=== PATIENT | male | born 1945 | race Caucasian/White ===

== ENCOUNTER 2020-08-26 13:42 | Inpatient (IN) ==
[2020-08-26 14:17] LABS: Basophils # 0.1 K/mcL (0.0-0.2); Eosinophils # 0.1 K/mcL (0.0-0.6); Hematocrit 50.2 % (37.5-50.1); Hemoglobin 16.8 g/dL (12.9-16.9); Mean Corpuscular HGB Conc 33.5 g/dL (31.6-35.5); Mean Corpuscular Volume 89.6 fL (83.0-100.0); Mean Platelet Volume 9.9 fL (9.4-12.4); Monocytes # 1.2 K/mcL (0.0-1.3); Platelet Count 273 K/mcL (140-400); Red Cell Distribution Width 12.9 % (11.5-14.5); White Blood Count 6.3 K/mcL (4.3-11.1)
[2020-08-26 14:37] LABS: INR 1.1; Prothrombin Time 12.2 Seconds (9.4-12.1)
[2020-08-26 14:45] LABS: Lymphocytes # 2.6 K/mcL (0.6-4.6); Neutrophils # 2.4 K/mcL (1.6-8.9)
[2020-08-26 14:46] LABS: Platelet Estimate Normal (Normal); Reactive Lymphocytes Present (Not Present)
[2020-08-26 15:06] LABS: BUN/Creatinine Ratio 13 (6-26); Blood Urea Nitrogen 13 mg/dL (8-23); Calcium 9.8 mg/dL (8.6-10.3); Carbon Dioxide 28 mEq/L (23-29); Chloride 97 mEq/L (98-107); Glucose 119 mg/dL (70-105); Osmolality,Calculated 283 (280-300); Potassium 3.6 mEq/L (3.5-5.1); Sodium 136 mEq/L (136-145); Troponin I < 0.03 ng/mL (< 0.04); eGFR For African Americans > 60 (> 60); eGFR For Non-African Americans > 60 (> 60)
[2020-08-26] MEDS ORDERED: Naloxone 0.4 MG/ML INJ IVP PRN (17:42)
[2020-08-26] MEDS ORDERED: Ondansetron 4 MG/2 ML VIAL IVP PRN (17:42)
[2020-08-26] MEDS ORDERED: Dextrose Gel 15 GM/37.5 ML TUBE PO PRN ×2 (17:52)
[2020-08-26] MEDS ORDERED: D5% in Water 1,000 ML IVC PRN (17:52)
[2020-08-26] MEDS ORDERED: *HR* Dextrose 50 % in Water (Vial) 50 ML VIAL IVP PRN (17:52)
[2020-08-26] MEDS: Dexamethasone 4 MG/ML VIAL IVP SCH (19:53)
[2020-08-26] MEDS: traZODone 50 MG TABLET PO SCH (19:55)
[2020-08-26] MEDS: Mirtazapine 15 MG TABLET PO SCH (19:55)
[2020-08-26] MEDS: *HR* Heparin 5,000 UNIT/ML VIAL SQ SCH (19:55)
[2020-08-26] MEDS: Insulin LISPRO 300 UNITS/3 ML VIAL SQ SCH (22:00)
[2020-08-27] MEDS: *HR* Heparin 5,000 UNIT/ML VIAL SQ SCH ×2 (05:36→19:15)
[2020-08-27 06:41] LABS: Basophils % 0.4 %; Hematocrit 49.3 % (37.5-50.1); Hemoglobin 16.4 g/dL (12.9-16.9); Immature Granulocytes % 0.2 % (0-4); Lymphocytes # 2.8 K/mcL (0.6-4.6); Lymphocytes % 56.8 %; Mean Corpuscular HGB Conc 33.3 g/dL (31.6-35.5); Mean Corpuscular Hemoglobin 29.9 pg (28.0-33.3); Mean Corpuscular Volume 89.8 fL (83.0-100.0); Mean Platelet Volume 9.9 fL (9.4-12.4); Monocytes # 0.3 K/mcL (0.0-1.3); Monocytes % 6.9 %; Neutrophils # 1.8 K/mcL (1.6-8.9); Platelet Count 272 K/mcL (140-400); Red Blood Count 5.49 M/mcL (4.19-5.50); Red Cell Distribution Width 12.6 % (11.5-14.5); Segmented Neutrophils % 35.7 %; White Blood Count 4.9 K/mcL (4.3-11.1)
[2020-08-27 07:11] LABS: BUN/Creatinine Ratio 17 (6-26); Blood Urea Nitrogen 15 mg/dL (8-23); Calcium 9.7 mg/dL (8.6-10.3); Carbon Dioxide 24 mEq/L (23-29); Chloride 101 mEq/L (98-107); Glucose 165 mg/dL (70-105); Osmolality,Calculated 283 (280-300); Potassium 3.8 mEq/L (3.5-5.1); Sodium 134 mEq/L (136-145); eGFR For African Americans > 60 (> 60); eGFR For Non-African Americans > 60 (> 60)
[2020-08-27] MEDS: Dexamethasone 4 MG/ML VIAL IVP SCH (10:28)
[2020-08-27] MEDS: BuPROPion XL (24 HR) 150 MG TABLET PO SCH (10:30)
[2020-08-27] MEDS: Insulin LISPRO 300 UNITS/3 ML VIAL SQ SCH ×4 (10:30→21:39)
[2020-08-27] MEDS: Cholecalciferol (D-3) 1,000 UNIT (25MCG) TABLET PO SCH (10:30)
[2020-08-27] MEDS ORDERED: Isovue-370 500 ML BOTTLE IVP ONE (11:48)
[2020-08-27] MEDS: traZODone 50 MG TABLET PO SCH (20:36)
[2020-08-27] MEDS: Mirtazapine 15 MG TABLET PO SCH (20:37)
[2020-08-27] MEDS ORDERED: 0.9 % Sodium Chloride 500 ML ONE (21:01)
[2020-08-28 03:58] LABS: Basophils % 0.2 %; Hematocrit 46.6 % (37.5-50.1); Hemoglobin 15.6 g/dL (12.9-16.9); Immature Granulocytes % 0.2 % (0-4); Lymphocytes # 3.9 K/mcL (0.6-4.6); Lymphocytes % 63.1 %; Mean Corpuscular HGB Conc 33.5 g/dL (31.6-35.5); Mean Corpuscular Hemoglobin 30.1 pg (28.0-33.3); Mean Corpuscular Volume 89.8 fL (83.0-100.0); Mean Platelet Volume 10.4 fL (9.4-12.4); Monocytes # 0.6 K/mcL (0.0-1.3); Monocytes % 10.5 %; Neutrophils # 1.6 K/mcL (1.6-8.9); Platelet Count 271 K/mcL (140-400); Red Blood Count 5.19 M/mcL (4.19-5.50); Red Cell Distribution Width 12.6 % (11.5-14.5); White Blood Count 6.1 K/mcL (4.3-11.1)
[2020-08-28 04:22] LABS: Alanine Aminotransferase 26 Units/L (7-52); Albumin 3.9 g/dL (3.5-5.7); Albumin/Globulin Ratio 1.2 (1.1-2.2); Alkaline Phosphatase 45 Units/L (34-104); Aspartate Amino Transferase 28 Units/L (13-39); BUN/Creatinine Ratio 27 (6-26); Bilirubin,Total 0.4 mg/dL (0.3-1.0); Blood Urea Nitrogen 22 mg/dL (8-23); Calcium 9.6 mg/dL (8.6-10.3); Carbon Dioxide 27 mEq/L (23-29); Chloride 100 mEq/L (98-107); Globulin 3.2 g/dL (2.4-3.5); Glucose 149 mg/dL (70-105); Osmolality,Calculated 290 (280-300); Potassium 3.4 mEq/L (3.5-5.1); Sodium 137 mEq/L (136-145); Total Protein 7.1 g/dL (6.4-8.9); eGFR For African Americans > 60 (> 60); eGFR For Non-African Americans > 60 (> 60)
[2020-08-28] MEDS: *HR* Heparin 5,000 UNIT/ML VIAL SQ SCH ×2 (05:57→17:00)
[2020-08-28] MEDS: Insulin LISPRO 300 UNITS/3 ML VIAL SQ SCH ×4 (09:18→21:19)
[2020-08-28] MEDS: Dexamethasone 4 MG/ML VIAL IVP SCH (09:32)
[2020-08-28] MEDS: Cholecalciferol (D-3) 1,000 UNIT (25MCG) TABLET PO SCH (09:32)
[2020-08-28] MEDS: BuPROPion XL (24 HR) 150 MG TABLET PO SCH (09:32)
[2020-08-28] MEDS: Ipratropium 1 PUFF INHALER IH SCH (20:54)
[2020-08-28] MEDS: traZODone 50 MG TABLET PO SCH (21:23)
[2020-08-28] MEDS: Mirtazapine 15 MG TABLET PO SCH (21:23)
[2020-08-29] MEDS: Ipratropium 1 PUFF INHALER IH SCH ×6 (00:02→19:59)
[2020-08-29] MEDS: *HR* Heparin 5,000 UNIT/ML VIAL SQ SCH ×2 (05:28→16:33)
[2020-08-29 06:06] LABS: Hematocrit 46.5 % (37.5-50.1); Hemoglobin 15.1 g/dL (12.9-16.9); Mean Corpuscular HGB Conc 32.5 g/dL (31.6-35.5); Mean Corpuscular Hemoglobin 29.3 pg (28.0-33.3); Mean Corpuscular Volume 90.1 fL (83.0-100.0); Mean Platelet Volume 10.2 fL (9.4-12.4); Platelet Count 263 K/mcL (140-400); Red Blood Count 5.16 M/mcL (4.19-5.50); Red Cell Distribution Width 12.7 % (11.5-14.5)
[2020-08-29 06:08] LABS: White Blood Count 12.8 K/mcL (4.3-11.1)
[2020-08-29 06:25] LABS: BUN/Creatinine Ratio 21 (6-26); Blood Urea Nitrogen 20 mg/dL (8-23); Calcium 9.8 mg/dL (8.6-10.3); Carbon Dioxide 28 mEq/L (23-29); Chloride 99 mEq/L (98-107); Glucose 131 mg/dL (70-105); Magnesium 1.8 mg/dL (1.6-2.6); Osmolality,Calculated 286 (280-300); Phosphorous 2.9 mg/dL (2.7-4.5); Potassium 3.8 mEq/L (3.5-5.1); Sodium 136 mEq/L (136-145); eGFR For African Americans > 60 (> 60); eGFR For Non-African Americans > 60 (> 60)
[2020-08-29] MEDS: Insulin LISPRO 300 UNITS/3 ML VIAL SQ SCH ×4 (07:52→19:56)
[2020-08-29] MEDS ORDERED: Acetaminophen 325 MG TABLET PO PRN (07:56)
[2020-08-29] MEDS: Dexamethasone 4 MG/ML VIAL IVP SCH (08:59)
[2020-08-29] MEDS: BuPROPion XL (24 HR) 150 MG TABLET PO SCH (09:00)
[2020-08-29] MEDS: Cholecalciferol (D-3) 1,000 UNIT (25MCG) TABLET PO SCH (09:00)
[2020-08-29] MEDS: Fluticasone Propionate Nasal 50 MCG/SPRAY BOTTLE NS SCH (09:00)
[2020-08-29 09:21] LABS: C-Reactive Protein 16 mg/L (Less than 10)
[2020-08-29] MEDS ORDERED: 0.9 % Sodium Chloride 250 ML ONE (11:32)
[2020-08-29] MEDS: traZODone 50 MG TABLET PO SCH (19:43)
[2020-08-29] MEDS: Mirtazapine 15 MG TABLET PO SCH (19:43)
[2020-08-30] MEDS: Ipratropium 1 PUFF INHALER IH SCH ×7 (00:08→23:59)
[2020-08-30] MEDS: *HR* Heparin 5,000 UNIT/ML VIAL SQ SCH ×2 (05:02→17:39)
[2020-08-30 06:34] LABS: Hemoglobin 14.8 g/dL (12.9-16.9); Mean Corpuscular HGB Conc 31.5 g/dL (31.6-35.5); Mean Corpuscular Hemoglobin 28.7 pg (28.0-33.3); Mean Corpuscular Volume 91.3 fL (83.0-100.0); Mean Platelet Volume 10.1 fL (9.4-12.4); Platelet Count 252 K/mcL (140-400); Red Blood Count 5.15 M/mcL (4.19-5.50); Red Cell Distribution Width 12.8 % (11.5-14.5); White Blood Count 15.2 K/mcL (4.3-11.1)
[2020-08-30 06:53] LABS: BUN/Creatinine Ratio 20 (6-26); Blood Urea Nitrogen 18 mg/dL (8-23); Calcium 9.7 mg/dL (8.6-10.3); Carbon Dioxide 27 mEq/L (23-29); Chloride 98 mEq/L (98-107); Glucose 124 mg/dL (70-105); Osmolality,Calculated 281 (280-300); Phosphorous 2.5 mg/dL (2.7-4.5); Potassium 3.9 mEq/L (3.5-5.1); Sodium 134 mEq/L (136-145); eGFR For African Americans > 60 (> 60); eGFR For Non-African Americans > 60 (> 60)
[2020-08-30] MEDS: Dexamethasone 4 MG/ML VIAL IVP SCH (09:08)
[2020-08-30] MEDS: BuPROPion XL (24 HR) 150 MG TABLET PO SCH (09:08)
[2020-08-30] MEDS: Fluticasone Propionate Nasal 50 MCG/SPRAY BOTTLE NS SCH (09:09)
[2020-08-30] MEDS: Cholecalciferol (D-3) 1,000 UNIT (25MCG) TABLET PO SCH (09:09)
[2020-08-30] MEDS: Insulin LISPRO 300 UNITS/3 ML VIAL SQ SCH ×4 (09:10→21:22)
[2020-08-30] MEDS: traZODone 50 MG TABLET PO SCH (21:03)
[2020-08-30] MEDS: Mirtazapine 15 MG TABLET PO SCH (21:03)
[2020-08-31 02:01] LABS: Hemoglobin 14.6 g/dL (12.9-16.9); Mean Corpuscular HGB Conc 33.2 g/dL (31.6-35.5); Mean Corpuscular Hemoglobin 29.7 pg (28.0-33.3); Mean Corpuscular Volume 89.6 fL (83.0-100.0); Mean Platelet Volume 10.5 fL (9.4-12.4); Platelet Count 261 K/mcL (140-400); Red Blood Count 4.91 M/mcL (4.19-5.50); Red Cell Distribution Width 12.7 % (11.5-14.5); White Blood Count 11.4 K/mcL (4.3-11.1)
[2020-08-31 02:20] LABS: BUN/Creatinine Ratio 25 (6-26); Blood Urea Nitrogen 20 mg/dL (8-23); C-Reactive Protein 88 mg/L (Less than 10); Calcium 9.5 mg/dL (8.6-10.3); Carbon Dioxide 27 mEq/L (23-29); Chloride 99 mEq/L (98-107); Glucose 149 mg/dL (70-105); Lactate Dehydrogenase 152 Units/L (140-271); Magnesium 1.9 mg/dL (1.6-2.6); Osmolality,Calculated 285 (280-300); Phosphorous 2.6 mg/dL (2.7-4.5); Potassium 3.7 mEq/L (3.5-5.1); Sodium 135 mEq/L (136-145); eGFR For African Americans > 60 (> 60); eGFR For Non-African Americans > 60 (> 60)
[2020-08-31 02:38] LABS: Ferritin 513 ng/mL (20-250)
[2020-08-31] MEDS: Ipratropium 1 PUFF INHALER IH SCH ×3 (03:41→11:10)
[2020-08-31] MEDS: *HR* Heparin 5,000 UNIT/ML VIAL SQ SCH (05:03)
[2020-08-31] MEDS: Cholecalciferol (D-3) 1,000 UNIT (25MCG) TABLET PO SCH (07:29)
[2020-08-31] MEDS: BuPROPion XL (24 HR) 150 MG TABLET PO SCH (07:30)
[2020-08-31] MEDS: Dexamethasone 4 MG/ML VIAL IVP SCH (07:30)
[2020-08-31] MEDS: Insulin LISPRO 300 UNITS/3 ML VIAL SQ SCH ×2 (08:05→12:18)
[2020-08-31] MEDS: Fluticasone Propionate Nasal 50 MCG/SPRAY BOTTLE NS SCH (08:06)
[2020-08-31] MEDS ORDERED: Aspirin 81 MG TAB.CHEW PO SCH (09:00)
[2020-08-31 12:24] VITALS: BP 126/66
== END 2020-08-31 13:45 | disposition home or self-care (01) | DRG 177 ==
LOC: EMEROOARM 13:42 → 2NENU 13:42 → SUATTDRO 17:15 → 2NENU 18:26 → SUATTDRO 08-27 11:54
PROVIDERS: ADMIT Pharmacist; ATTEND Internal Medicine